=== PATIENT | male | born 1945 | race Caucasian/White ===

== ENCOUNTER → 2018-05-05 | Outpatient (CLI) | payer OTHER | LOC: BHFA 08:30 | PROVIDERS: ATTEND Internal Medicine Cardiovascular Disease | DX: I25.10 Atherosclerotic heart disease of native coronary artery without angina pectoris (principal) | CPT/HCPCS: 78452; 93017; A9500 ==

== ENCOUNTER 2018-05-19 06:18 | Day surgery (SDC) | payer OTHER ==
[2018-05-19] MEDS ORDERED: NS 1,000 ML IV ONE (06:21)
[2018-05-19] MEDS ORDERED: FAMOTIDINE 20 MG TAB PO ONE (06:21)
[2018-05-19] MEDS ORDERED: diphenhydrAMINE 25 MG CAP PO ONE ×2 (06:21→06:51)
[2018-05-19] MEDS ORDERED: ASPIRIN EC 325 MG TAB PO ONE ×2 (06:21→06:51)
[2018-05-19] MEDS ORDERED: DIAZEPAM 5 MG TAB PO ONE (06:21)
--- NOTE | 2018-05-19 06:45 | PDHPUP ---
History & Physical Update H&P update statement: This history and physical update is based on an assessment of the patient which was completed after admission or registration (within 24 hours), but prior to the surgery/procedure. H&P update: H&P reviewed & patient examined, no change in patient's condition since H&P completed
--- NOTE | 2018-05-19 06:45 | PDPROPOC ---
Sedation Plan of Care Sedation Plan of Care: mental status noted, patient educated of risks, benefits , alternatives, patient can tolerate sedation ASA Classification: ASA 2 Planned drugs: fentanyl, midazolam Mallampati Score: Class 2 Mallampati Reference Image: Patient passed 3-3-2 rule?: Yes
[2018-05-19] MEDS ORDERED: FAMOTIDINE 20 MG TAB ONE (06:51)
[2018-05-19] MEDS ORDERED: DIAZEPAM 5 MG TAB ONE (06:52)
[2018-05-19] MEDS ORDERED: MIDAZOLAM 2 MG/2 ML VIAL ONE ×2 (07:07→07:08)
[2018-05-19] MEDS ORDERED: LIDOCAINE 1% 300 MG/30 ML SDV ONE (07:07)
[2018-05-19] MEDS ORDERED: fentaNYL 100 MCG/2 ML INJ ONE (07:07)
[2018-05-19] MEDS ORDERED: IOPAMIDOL (ISOVUE-370) 150 ML BTL IV ONE (07:08)
[2018-05-19 07:11] LABS: PLATELET COUNT 210 10^3/uL (150-400)
[2018-05-19 07:19] LABS: INR 0.95 (0.83-1.16); PROTIME(PATIENT) 12.9 SEC (12.0-15.0)
[2018-05-19] MEDS ORDERED: ONDANSETRON 4 MG/2 ML VIAL IVP PRN (07:51)
[2018-05-19] MEDS ORDERED: ATROPINE SULFATE 1 MG/10 ML SYR IVP PRN (07:51)
[2018-05-19] MEDS ORDERED: HYDROCODONE/APAP 5/325 TAB PO PRN (07:51)
[2018-05-19] MEDS ORDERED: OXYCODONE/APAP 5/325 TAB PO PRN (07:51)
--- NOTE | 2018-05-19 08:34 | CPIP ---
DATE OF PROCEDURE: 05/19/2018 INDICATION FOR PROCEDURE: Positive stress test. PROCEDURE: 1. Nonselective right groin sheathogram. 2. Bilateral selective coronary angiography. 3. Left heart catheterization. 4. Left ventriculogram. HISTORY: Briefly, this is a 73-year-old male with history of elevated calcium score, family history of coronary disease, and positive stress test showing anterior ischemia who was consented for left he art catheterization. Of note, the patient has been asymptomatic and denies any chest pain or shortne ss of breath. 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 Using Lidocaine, a short 6-Turkmen sheath the right femoral artery, verified angiographically. Through 6-Turkmen sheath, a JR4 catheter was advanc ed to left coronary artery. Images of the left circumflex artery revealed normal left main. Left ci rcumflex artery gave off a medium-sized marginal artery proximally, which had focal tubular 80% to 90 % disease. Distally, the vessel appeared to be patent. The circumflex terminated to a marginal 2 an d 3 arteries which were tiny and free of disease. The LAD gave off a large diagonal proximally, whi ch had what appeared to be 50% disease in its proximal aspect. There was a 2nd diagonal artery comin g off just distal to this, which had subtotal occlusion of 90% disease. Distally, the vessel appeare d to be small. The LAD had tubular stenosis of at least 70% in its midportion. Distally, the vessel appeared to be widely patent. At this time, the JR4 catheter was removed. The JR4 catheter was advanced to the right coronary james ry. Images of the right coronary artery revealed normal ostial RCA, 30% disease in the proximal RCA. There appeared to be an early takeoff of the RPLS. The RPDA appeared to be healthy and free of dis ease; however, in the mid RPLS, he appeared to have a focal tubular stenosis of at least 70% distally . The vessel appeared to be widely patent. After these images were obtained, the JR4 catheter was removed. A pigtail catheter was advanced into the left ventricle. LVEDP is 15 mmHg. Left atrium in CHEEMA projection showed EF of 65% with no wall motion abnormalities. No pullback gradient between the LV and aorta. Pigtail catheter was removed o dave the 0.035 guidewire wire. Right groin was closed with a 6-Turkmen Angio-Seal. The patient of pro cedure well with no complications. IMPRESSION: 1. Multiple vessel coronary artery disease mainly in the form of mid left anterior descending, jose antonio nal 1 artery, diagonal 2 artery, and mid right posterolateralis sinister. 2. Normal ejection fraction. PLAN: The patient has multivessel coronary artery disease with amenable distal vessel to CABG. We w ill consult CT surgery. Further orders following clinical course. /[id number]/MODL
--- NOTE | 2018-05-20 22:26 | CPEKG ---
Test Reason : OPEN Blood Pressure : / mmHG Vent. Rate : 065 BPM Atrial Rate : 065 BPM P-R Int : 202 ms QRS Dur : 080 ms QT Int : 409 ms P-R-T Axes : 070 061 056 degrees QTc Int : 426 ms Sinus rhythm Early R/s transition in V3 Confirmed by Navi Graff ([id number]) on 05/20/2018 10:26:24 PM Referred By: Confirmed By:Navi Graff
== END 2018-05-19 12:16 | disposition home or self-care (01) ==
LOC: FCATH 06:18
PROVIDERS: ATTEND Internal Medicine Cardiovascular Disease
PROC: B2151ZZ Fluoroscopy of Left Heart using Low Osmolar Contrast (ICD-10-PCS; principal; 2018-05-19)
PROC: 4A023N7 Measurement of Cardiac Sampling and Pressure, Left Heart, Percutaneous Approach (ICD-10-PCS; principal; 2018-05-19)
PROC: B2111ZZ Fluoroscopy of Multiple Coronary Arteries using Low Osmolar Contrast (ICD-10-PCS; principal; 2018-05-19)
DX: R94.39 Abnormal result of other cardiovascular function study (principal); I25.10 Atherosclerotic heart disease of native coronary artery without angina pectoris; E78.5 Hyperlipidemia, unspecified; Z96.641 Presence of right artificial hip joint
CPT/HCPCS: C1760; J1644; J2250; J3010; Q9967

== ENCOUNTER 2018-06-08 06:55 | Inpatient (IN) | payer OTHER ==
[~2018-06-08 06:55] MED LIST: ADENOSINE 6 MG/2 ML VIAL ONE; ALBUMIN 5% 250 ML BOTTLE IV ONE; AMINOCAPROIC ACID 5 GM/20 ML VIAL IV ONE; AMIODARONE HCL 150 MG/3 ML VIAL ONE; CALCIUM CHLORIDE 1 GM/10 ML INJ ONE; CARDIOPLEGIC SOLUTION 1,052.8 ML PF ONE; CITRATE DEXTROSE SOLN 500 ML BAG MISC ONE; CITRATE DEXTROSE SOLN 500 ML BAG ONE; DOBUTamine/DEXTROSE 250 ML IV ONE; DOPamine/DEXTROSE 400 MG/250 ML BAG IV ONE; HEPARIN 10,000 UNIT/10 ML MDV (1,000 UNIT/ML) ONE; INSULIN REGULAR HUMAN 100 UNIT in NS 100 ML IV ONE; LIDOCAINE 2% 100 MG/5 ML SYR ONE; MAGNESIUM SULFATE 1 GM/2 ML VIAL ONE; MANNITOL 25% 12.5 GM/50 ML VIAL IVP ONE; MILRINONE/DEXTROSE/100 ML BAG IV ONE; NA BICARBONATE 50 MEQ/50 ML VIAL ONE; NITROGLYCERIN/D5W 50 MG/250 ML BOTTLE IV ONE; PAPAVERINE HCL 60 MG/2 ML SDV ONE; PHENYLEPHRINE HCL 50 MG in NS 250 ML IV ONE; PROTAMINE SULFATE 50 MG/5 ML VIAL IVP ONE; SODIUM BICARBONATE 50 MEQ/50 ML SYR ONE; VERAPAMIL 5 MG, NITROGLYCERIN 2.5 MG, HEPARIN 500 UNIT, SODIUM BICARBONATE 0.2 MEQ in L... MISC ONE; ceFAZolin 1 GM VIAL ONE; ceFAZolin 2 GM/DEXTROSE 100 ML IV ONE; methylPREDNISolone SOD SUCC 1 GM/8 ML VIAL ONE; niCARdipine/NACL 200 ML IV ONE; niCARdipine/NACL/200 ML BAG IV ONE
[2018-06-08] MEDS ORDERED: LIDOCAINE 1% 2 ML INJ ID PRN (07:05)
[2018-06-08] MEDS ORDERED: LR 1,000 ML IV ONE (07:10)
[2018-06-08] MEDS ORDERED: MIDAZOLAM 2 MG/2 ML VIAL IVP ONE (07:49)
--- NOTE | 2018-06-08 07:49 | PDANEPAE ---
ANE History of Present Illness here for CABG ANE Past Medical History - Cardiovascular History Hx Hypertension: No Hx Arrhythmias: No Hx Chest Pain: No Hx Coronary Artery / Peripheral Vascular Disease: Yes Hx CHF / Valvular Disease: No Hx Palpitations: No - Pulmonary History Hx COPD: No Hx Asthma/Reactive Airway Disease: No Hx Recent Upper Respiratory Infection: No Hx Oxygen in Use at Home: No Hx Sleep Apnea: No Sleep Apnea Screening Result - Last Documented: Negative - Neurologic History Hx Cerebrovascular Accident: No Hx Seizures: No Hx Dementia: No - Endocrine History Hx Diabetes: No - Renal History Hx Renal Disorders: No - Liver History Hx Hepatic Disorders: No - Neurological & Psychiatric Hx Hx Neurological and Psychiatric Disorders: No - Cancer History Hx Cancer: Yes Cancer History Comment: LUNG/AORTA CA. SKIN - Congenital Disorder History Hx Congenital Disorders: No - GI History Hx Gastrointestinal Disorders: No - Other Health History Other Health History: ED - Chronic Pain History Chronic Pain: No - Surgical History Prior Surgeries: CERVICAL FUSION 1960'S FX PLAYING FOOTBALL. RT TOTAL HIP. CARDINOID TUMOR LUNG/AORTA. LT SHLDR REMVL BONE CHIPS. LT KNEE SCOPE. TONSILLECTOMY ANE Review of Systems Review of systems is: negative Review of Systems: - Exercise capacity Exercise capacity: >=4 METS METS (RN): 6 METS ANE Patient History - Allergies Allergies/Adverse Reactions: oxycodone Allergy (Verified 05/29/18 10:25) Other-Enter Comments - Home Medications Home medications: home medication list seen and reviewed Home Medications: Aspirin [Aspirin 81mg (*)] 81 mg PO DAILY 05/15/18 [Last Taken 05/17/18 10:00] Atorvastatin Calcium [Lipitor 40 mg (*)] 40 mg PO HS 05/15/18 [Last Taken 10:00] Herbals/Supplements -Info Only 1 ea PO DAILY 05/15/18 [Last Taken 05/17/18 10:00 ] Ibuprofen [Motrin (*)] 200 mg PO DAILY PRN 05/15/18 [Last Taken 05/18/18 10:00] Sildenafil Citrate [Viagra] 100 mg PO AD 05/15/18 [Last Taken Unknown] amLODIPine BESYLATE [Norvasc 5 mg (*)] 5 mg PO DAILY 05/15/18 [Last Taken 10:00] Multivitamins [Multivitamin (*)] 1 each PO DAILY 05/29/18 [Last Taken Unknown] - NPO status NPO Status: no food or drink >8 hours - Smoking Hx Smoking Status: Never smoked - Family Anes Hx Family Hx Anesthesia Complications: NEG ANE Labs/Vital Signs - Vital Signs Vital Signs: reviewed preoperatively; see RN documention for details Height: 175.26 cm Weight: 76.204 kg ANE Physical Exam - Airway Neck exam: FROM, spinal fusion Mallampati Score: Class 1 Mouth exam: normal dental/mouth exam - Pulmonary Pulmonary: no respiratory distress - Cardiovascular Cardiovascular: regular rate and rhythym - ASA Status ASA Status: IV ANE Anesthesia Plan Anesthesia Plan: general endotracheal anesthesia Lines/Monitors: arterial line, central line
[2018-06-08] MEDS ORDERED: fentaNYL 250 MCG/5 ML INJ ONE (08:03)
[2018-06-08] MEDS ORDERED: PROPOFOL/EMULSION 500 MG/50 ML BOTTLE IV ONE (08:03)
[2018-06-08] MEDS ORDERED: ESMOLOL HCL 100 MG/10 ML VIAL IV ONE (08:04)
[2018-06-08] MEDS ORDERED: ROCURONIUM 100 MG/10 ML VIAL ONE (08:04)
[2018-06-08] MEDS ORDERED: PHENYLEPHRINE HCL 100 MCG/ML SYR ONE (08:04)
[2018-06-08] MEDS ORDERED: KETAMINE 200 MG/20 ML VIAL ONE (08:11)
[2018-06-08] MEDS ORDERED: DEXAMETHASONE 4 MG/ML VIAL ONE ×2 (08:12)
[2018-06-08] MEDS ORDERED: HYDROmorphONE/DILAUDID 2 MG/ML INJ ONE (10:29)
[2018-06-08] MEDS ORDERED: PROPOFOL 200 MG/20 ML VIAL ONE (11:21)
[2018-06-08] MEDS ORDERED: ALBUMIN 5% 250 ML BOTTLE IV ONE (12:35)
[2018-06-08] MEDS ORDERED: fentaNYL 100 MCG/2 ML INJ ONE (12:48)
--- NOTE | 2018-06-08 13:00 | POSTOPPROG ---
Post Op Note Date of Operation: 06/08/18 Surgeon: Kieran Tena Assistant: Leonardo Blount Anesthesia: GET(General Endotracheal) Pre-op Diagnosis: CAD, EF 65% Post-op Diagnosis: same Procedure: CABGx3 (MITCHELL-LAD, SVG-OM2, SVG-PDA); EVH right leg Findings: see OR report Inf/Abcess present in the surg proc area at time of surgery?: No EBL: 100-500 Complications: none Drains: Other (3 chest tubes - 1 right pleural, 1 left pleural, 1 mediastinal 2 V-Wires) Specimen(s): none
[2018-06-08] MEDS ORDERED: SODIUM CL NASAL 45 ML BTL EACHNARE PRN (13:12)
[2018-06-08] MEDS ORDERED: LACTULOSE 20 GM/30 ML UDCUP PO PRN (13:12)
[2018-06-08] MEDS ORDERED: CEPACOL LOZENGE PO PRN (13:12)
[2018-06-08] MEDS ORDERED: MEPERIDINE 25 MG/0.5 ML AMP IVP PRN (13:12)
[2018-06-08] MEDS ORDERED: METOCLOPRAMIDE 10 MG/2 ML VIAL IVP PRN (13:12)
[2018-06-08] MEDS ORDERED: MAGNESIUM HYDROXIDE 30 ML UDCUP PO PRN (13:12)
[2018-06-08] MEDS ORDERED: BISACODYL 10 MG SUPP PR PRN (13:12)
[2018-06-08] MEDS ORDERED: PANTOPRAZOLE SODIUM 40 MG VIAL IVP ONE (13:12)
[2018-06-08] MEDS ORDERED: fentaNYL 100 MCG/2 ML INJ IVP PRN (13:12)
[2018-06-08] MEDS ORDERED: ACETAMINOPHEN 650 MG SUPP PR PRN (13:12)
[2018-06-08] MEDS ORDERED: D50W 25 GM/50 ML SYR IVP PRN (13:12)
[2018-06-08] MEDS ORDERED: niCARdipine/NACL 200 ML IV PRN (13:12)
[2018-06-08] MEDS ORDERED: ONDANSETRON DISINTEGRATING 4 MG TAB PO PRN (13:12)
[2018-06-08] MEDS ORDERED: POLYETHYLENE GLYCOL 3350 17 GM PKT PO PRN (13:12)
[2018-06-08] MEDS ORDERED: ONDANSETRON 4 MG/2 ML VIAL IVP PRN (13:12)
[2018-06-08] MEDS ORDERED: NS 1,000 ML IV SCH (13:15)
[2018-06-08] MEDS ORDERED: INSULIN REGULAR HUMAN 100 UNIT in NS 100 ML IV SCH (13:30)
[2018-06-08] MEDS ORDERED: DEXMEDETOMIDINE HCL 400 MCG in NS 100 ML IV SCH (13:30)
[2018-06-08] MEDS: ALBUMIN 5% 250 ML IV PRN ×2 (13:40→19:52)
--- NOTE | 2018-06-08 13:48 | POSTANESTH ---
Post Anesthetic Evaluation Cardiovascular Status: Normal, Stable Respiratory Status: Requires Airway Assist Level of Consciousness/Mental Status: Can Participate in Eval Pain Control: Adequate, Prn Tx Ordered Nausea/Vomiting Control: Adequate, Prn Tx Ordered Complications Possibly Related to Anesthesia: None Noted
[2018-06-08 13:54] LABS: INR 1.39 (0.83-1.16); PROTIME(PATIENT) 17.2 SEC (12.0-15.0)
--- NOTE | 2018-06-08 14:00 | GCON ---
CHIEF CRNA CONSULTATION HISTORY OF PRESENT ILLNESS: Patient examined postoperatively after receiving a 3-vessel coronary art tip bypass graft. The patient is currently sedated and on mechanical ventilation. All history is gl eaned from the medical record. 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 He underwent a 3-vessel coronary bypass graft today. He is currently on mechanical ventilation. Blood pressure is somewhat lowish. REVIEW OF SYSTEMS: Ten-point review of systems is performed, negative except for as listed in the HP I. PAST MEDICAL HISTORY: Again significant for coronary artery disease, hyperlipidemia, degenerative dominique int disease, history of a lung carcinoid, status post lung resection. PAST SURGICAL HISTORY: Has had a hip replacement, carcinoid tumor removed. ALLERGIES: Oxycodone. FAMILY HISTORY: Significant for Alzheimer disease, cardiovascular disease, diabetes, hypertension. SOCIAL HISTORY: No history of tobacco use. Infrequent alcohol use. He is , has children. H as good family support. HOME MEDICATIONS: Include aspirin, atorvastatin, coenzyme Q, ibuprofen, and Viagra. PHYSICAL EXAM: VITAL SIGNS: Blood pressure is 82/69. Pulse is 56. Respirations are 16, temperature 36.7. Oxygen saturation is 100% on mechanical ventilation. GENERAL: He is a well-developed, well- nourished 73-year-old white male who is sedated and on mechanical ventilation. HEENT: Eyes are PERR LA, EOMI. Throat shows no erythema or tonsillar hypertrophy. NECK: Supple. There is no cervical a denopathy. HEART: Regular rate and rhythm, without murmurs, rubs, or gallops. LUNGS: Diminished b reath sounds, a few bibasilar crackles. ABDOMEN: Soft, nontender. Bowel sounds are present. EXTRE MITIES: No clubbing, cyanosis, or edema. LABORATORIES: Currently pending. Chest x-ray is currently pending. IMPRESSION: 1. Coronary artery disease. 2. Status post coronary artery bypass graft. 3. Acute respiratory failure, stable on mechanical ventilation. 4. Hypotension. 5. Degenerative joint disease. 6. Hyperlipidemia. 7. History of carcinoid tumor with lung resection. RECOMMENDATIONS: 1. Adequate pain control. 2. Agree with switching sedation to Precedex. 3. Wean from mechanical ventilation when tolerated. 4. DVT and PE prophylaxis, holding anticoagulation for now. 5. Stress ulcer prophylaxis. 6. Close cardiovascular monitoring. 7. Early ambulation. 8. PT and OT. /[id number]/MODL
--- NOTE | 2018-06-08 14:10 | PDMN ---
Medical Necessity Medical necessity: [facility] [place] S390 CAB yo s/p CABG, [facility] IP Only
--- NOTE | 2018-06-08 14:15 | GOP ---
DATE OF OPERATION: 06/08/2018 SURGEON: Kieran Tena MD LIME VAT TENDER: Leonardo Blount P.A.-c. PREOPERATIVE DIAGNOSIS: Coronary artery disease. POSTOPERATIVE DIAGNOSIS: Coronary artery disease. PROCEDURE PERFORMED: Triple-vessel coronary artery bypass grafting with left internal mammary artery to the left anterior descending, saphenous vein graft from aorta to M2, saphenous vein graft from ao rta to distal right coronary artery. Endoscopic vein harvest from the right leg. FINDINGS: The pericardial space was free. The aorta was soft. The vein was good quality 3-4 mm ves obdulio. The distal vessels were adequate for grafting with the exception of the 2nd diagonal, which was small, diffusely diseased, and deep in the epicardium. INDICATIONS: The patient is a 73-year-old gentleman with 3-vessel coronary artery disease including a high-grade lesion in his proximal LAD. He was recommended to undergo surgical revascularization. DESCRIPTION OF PROCEDURE: Patient was taken to the operating room and placed on the operating table in a supine position. After the induction of general anesthesia and single-lumen endotracheal tube i ntubation, the patient was prepped and draped sterilely. A standard median sternotomy was performed. The patient was fully heparinized. He was cannulated with a Sarnes 8.0 soft-flow aortic cannula as well as a dual-stage venous right atrial cannula. Cardiopulmonary bypass was instituted. The dista l vessels were marked for grafting. The distal right coronary artery, which was kind of a proximal t akeoff of the PDA, had a distal lesion in it. We opened this vessel. It was a 1.5 mm vessel and anas tomosed the vein graft end-to-side using running 7-0 Prolene. Next, a 2nd marginal was exposed, opened, probed, and then anastomosed end-to-side to a separate vein graft using running 7-0 Prolene. Lastly, the LAD was opened in its 3rd portion. It was anastomosed end-to-side to the left internal mammary artery using running 7-0 Prolene. This was then tacked to the epicardium and allowed to flow freely. The cross-clamp was then removed and a partial occlusion clamp was placed. The vein grafts were anastomosed end-to-side to the ascending aorta using running 6 -0 Prolene. Left, right, and mediastinal chest tubes were placed as well as 2 ventricular pacing wir es. The patient was from bypass without difficulty and the protamine was administered. On ce hemostasis had been achieved, the heart was covered with pericardium and fat, and the chest was cl osed with #6 stainless steel wires. Subcutaneous tissue and skin were closed with running Vicryl sut ure. The patient tolerated procedure the well. /[id number]/MODL
[2018-06-08] MEDS: MUPIROCIN 2% 22 GM OINT NS SCH ×3 (15:08→21:21)
[2018-06-08] MEDS: ceFAZolin 2 GM/DEXTROSE 100 ML IV SCH ×2 (15:09→21:21)
[2018-06-08] MEDS: POTASSIUM Cl (KCl) 50 ML IV PRN ×2 (17:21→20:16)
--- NOTE | 2018-06-08 17:58 | CPEKG ---
Test Reason : OPEN Blood Pressure : / mmHG Vent. Rate : 063 BPM Atrial Rate : 063 BPM P-R Int : 165 ms QRS Dur : 082 ms QT Int : 455 ms P-R-T Axes : 082 078 071 degrees QTc Int : 466 ms Sinus rhythm Borderline ST elevation, lateral leads-- Probably early repolarization. No significant change from No vember 2017 Confirmed by Leonardo Mccain ([id number]) on 06/08/2018 5:58:06 PM Referred By: Confirmed By:Leonardo Mccain
[2018-06-08] MEDS: HYDROCODONE/APAP 5/325 TAB PO PRN ×2 (19:21→21:56)
[2018-06-09] MEDS: HYDROCODONE/APAP 5/325 TAB PO PRN ×3 (01:32→17:31)
[2018-06-09] MEDS: ceFAZolin 2 GM/DEXTROSE 100 ML IV SCH ×3 (05:53→21:01)
[2018-06-09 06:15] LABS: PLATELET COUNT 163 10^3/uL (150-400)
--- NOTE | 2018-06-09 07:54 | SOAPPROG ---
SOAP Progress Note Assessment/Plan: POD # 1 CABGx3 1. CAD s/p CABGx3 -start aspirin today. Hold BB given patient's post-operative bradycardia. Possible restart 06/10. 2. Acute blood loss anemia - coagulopathic immediately post-op on arrival to ICU. 1 unit platelets with appropriate response. Output trended down and H/H stable. 3. Post-operative intermittent bradycardia with occasional PAC's - last episode at 2 AM, no drops in BP, appears to have inappropriate sensing. Wrap & cap. 4. Leukocytosis - WBC 10.13, afebrile, secondary to surgery 5. Hypertension - hold norvasc, BP stable but trending up, PRN hydralazine 6. Dyslipidemia - plan to restart home atorvastatin POD#3 Plan: TTF Chest tubes: yes, expect increase o/p with ambulation Wires: V-Wires, wrap & cap Arterial: Yes, discontinue today Urinary catheter: Yes, discontinue today CVC: yes, need for ongoing labs DVT ppx: ambulation, SCDs 06/09/18 09:08 Subjective: Doing well. Episodes of intermittent bradycardia overnight (last 2 AM). Hemodynamically stable. Objective: Vital Signs Temp Pulse Resp BP Pulse Ox 37.1 C 89 21 H 135/54 H 95 06/09/18 04:00 06/09/18 07:00 06/09/18 07:00 06/09/18 07:00 06/09/18 07:00 Laboratory Results 06/09/18 05:55 06/09/18 05:55 06/08/18 06/09/18 06/10/18 05:59 05:59 05:59 Intake Total 2803.8 Output Total 1875 95 Balance 928.8 -95 PT 17.2 SEC (12.0-15.0) H 06/08/18 13:25 INR 1.39 (0.83-1.16) H 06/08/18 13:25 General: NAD, sitting upright HEENT: CVL IJ, MMM Respiratory: RA 95%, no wheezes, crackles Cardiac: NSR, no m/r/g, no edema GI: soft, nt, nd : + morales Incisions: sternum/right thigh - CDI Chest tubes: 390/190/50 venous drainage, no airleak ICD10 Worksheet Patient Problems: Problems Problem Status Onset Acute blood loss anemia Acute S/P CABG x 3 Acute CAD, multiple vessel Chronic Dyslipidemia Chronic
--- NOTE | 2018-06-09 09:07 | PDINTPN ---
Flour Worker Progress Note Assessment/Plan: Assessment/plan: * Coronary disease * Status post coronary bypass graft * Respiratory-stable off mechanical ventilation -wean FiO2 as tolerated * Hypertension-controlled * History of lung carcinoma with resection * Pain-well controlled * PT/OT * Disposition-likely transfer to floor soon Overall improved Subjective: Sitting up in chair. Resting comfortably. Pain well tolerated. Using incentive spirometer appropriately. Objective: Vital Signs Temp Pulse Resp BP Pulse Ox 37.1 C 89 21 H 135/54 H 95 06/09/18 04:00 06/09/18 07:00 06/09/18 07:00 06/09/18 07:00 06/09/18 07:00 Laboratory Results 06/09/18 05:55 06/09/18 05:55 06/08/18 06/09/18 06/10/18 05:59 05:59 05:59 Intake Total 2803.8 Output Total 1875 95 Balance 928.8 -95 PT 17.2 SEC (12.0-15.0) H 06/08/18 13:25 INR 1.39 (0.83-1.16) H 06/08/18 13:25 Physical Exam - Physical Exam General Appearance: WD/WN, alert EENT: PERRL/EOMI, normal ENT inspection Neck: non-tender, full range of motion Respiratory: chest non-tender, lungs clear, normal breath sounds Cardiac/Chest: normal peripheral pulses, regular rate, rhythm, systolic murmur Peripheral Pulses: 2+: carotid (R), carotid (L), femoral (R), femoral (L), dorsalis-pedis (R), dorsalis-pedis (L) Abdomen: normal bowel sounds, non-tender, soft Male Genitalia: deferred Rectal: deferred Skin: normal color, warm/dry Extremities: normal range of motion, non-tender, normal inspection, normal capillary refill Neuro/Psych: alert, normal mood/affect, oriented x 3 ICD10 Worksheet Patient Problems: Problems Problem Status Onset Acute blood loss anemia Acute S/P CABG x 3 Acute CAD, multiple vessel Chronic Dyslipidemia Chronic
[2018-06-09] MEDS ORDERED: traMADol 50 MG TAB PO PRN (09:32)
--- NOTE | 2018-06-09 09:36 | ASMTCMCOM ---
CM Note CM Note Notes: 73yo male admitted for CAD, DLD, HLD- s/p CABG x 3. He has a Hx of DJD- R FAREED, Neck fusion, Lung tumor-removed. Patient lives with his who is his medical decision maker.Therapies to eval. May not have discharge needs. CM to follow. Date Signed: 06/09/2018 09:35 AM Electronically Signed By:Felicia Jones LCSW
[2018-06-09] MEDS ORDERED: hydrALAZINE 25 MG TAB PO PRN (09:42)
[2018-06-09] MEDS: ASPIRIN 81 MG CHEWABLE TAB PO SCH (09:50)
[2018-06-09] MEDS: PANTOPRAZOLE SODIUM 40 MG TAB PO SCH (09:51)
[2018-06-09] MEDS: MUPIROCIN 2% 22 GM OINT NS SCH ×2 (09:52→21:01)
[2018-06-09] MEDS: SENNOSIDES/DOCUSATE SODIUM TAB PO SCH (20:59)
[2018-06-10] MEDS: HYDROCODONE/APAP 5/325 TAB PO PRN ×2 (06:10→17:33)
[2018-06-10 06:34] LABS: PLATELET COUNT 150 10^3/uL (150-400)
--- NOTE | 2018-06-10 06:48 | SOAPPROG ---
SOAP Progress Note Assessment/Plan: POD #2: CABGx3 (MITCHELL-LAD, SVG-OM2, SVG-RCA), EVH right thigh CAD with preserved LV function s/p CABGx3 - CTs x3 out this morning - BB to start today, continue ASA/statin for secondary prevention - PT/OT Acute post-op blood loss anemia - H/H lower this AM without sxs of active bleeding - Monitor Post-op bradycardia - No bradycardia past 24 hours - Beta-nirav to start today - Keep V-wires DVT prophylaxis - SCDs only Disposition - Home Friday/Friday without services Subjective: Having a hard time taking deep breaths. Pain controlled. Objective: Vital Signs Temp Pulse Resp BP Pulse Ox 37.8 C 89 23 H 124/66 H 98 06/10/18 05:59 06/10/18 05:59 06/10/18 05:59 06/10/18 05:59 06/10/18 05:59 Laboratory Results 06/10/18 06:00 06/09/18 06/10/18 06/11/18 05:59 05:59 05:59 Intake Total 2803.8 1420 Output Total 1875 1375 Balance 928.8 45 PT 17.2 SEC (12.0-15.0) H 06/08/18 13:25 INR 1.39 (0.83-1.16) H 06/08/18 13:25 Physical Exam - Physical Exam General Appearance: WD/WN, alert, no apparent distress EENT: No scleral icterus (R), No scleral icterus (L) Neck: normal inspection Respiratory: No respiratory distress Cardiac/Chest: regular rate, rhythm Abdomen: non-tender, soft, No distended Skin: normal color, warm/dry Extremities: No pedal edema Neuro/Psych: no motor/sensory deficits, alert, normal mood/affect, oriented x 3 ICD10 Worksheet Patient Problems: Problems Problem Status Onset Acute blood loss anemia Acute S/P CABG x 3 Acute CAD, multiple vessel Chronic Dyslipidemia Chronic
[2018-06-10] MEDS: SENNOSIDES/DOCUSATE SODIUM TAB PO SCH ×2 (08:22→20:12)
[2018-06-10] MEDS: PANTOPRAZOLE SODIUM 40 MG TAB PO SCH (08:23)
[2018-06-10] MEDS: ASPIRIN 81 MG CHEWABLE TAB PO SCH (08:23)
[2018-06-10] MEDS: MUPIROCIN 2% 22 GM OINT NS SCH (08:24)
[2018-06-10] MEDS: METOPROLOL TARTRATE 25 MG TAB PO SCH ×2 (09:10→20:11)
--- NOTE | 2018-06-11 08:32 | SOAPPROG ---
SOAP Progress Note Assessment/Plan: POD #3: CABGx3 (MITCHELL-LAD, SVG-OM2, SVG-RCA), EVH right thigh CAD with preserved LV function s/p CABGx3 - HR 82-92 overnight, BB started yesterday - Continue ASA/statin for secondary prevention - PT/OT Acute post-op blood loss anemia - H/H lower this AM without sxs of active bleeding and asymptomatic (pre-op Hct 43 ->27->24->22) - Monitor, repeat H/H in morning. D/w patient possibility of needing a transfusion Post-op bradycardia, resolved - V-wires out today Mild Hyponatremia (133) - Renal function normal, expect to autoregulate DVT prophylaxis - SCDs only Disposition - Remove V-wires - Repeat H/H tomorrow - Home Friday/Friday without services Objective: Vital Signs Temp Pulse Resp BP Pulse Ox 37.4 C 84 18 118/57 L 92 06/11/18 07:42 06/11/18 07:42 06/11/18 07:42 06/11/18 07:42 06/11/18 07:42 Laboratory Results 06/11/18 05:55 06/10/18 06:00 06/10/18 06/11/18 06/12/18 05:59 05:59 05:59 Intake Total 1420 580 Output Total 1375 1050 Balance 45 -470 PT 17.2 SEC (12.0-15.0) H 06/08/18 13:25 INR 1.39 (0.83-1.16) H 06/08/18 13:25 General Appearance: WD/WN, alert, no apparent distress EENT: No scleral icterus (R), No scleral icterus (L) Neck: normal inspection, R CVL Respiratory: No respiratory distress Cardiac/Chest: regular rate, rhythm, v-wires capped Abdomen: non-tender, soft, No distended Skin: normal color, warm/dry; sternum C/D/I; EVH site C/D/I Extremities: No pedal edema Neuro/Psych: no motor/sensory deficits, alert, normal mood/affect, oriented x 3 CXR reviewed - mild interstitial edema ICD10 Worksheet Patient Problems: Problems Problem Status Onset Acute blood loss anemia Acute S/P CABG x 3 Acute chronic disease mgmt/transitional care Acute CAD, multiple vessel Chronic Dyslipidemia Chronic
[2018-06-11] MEDS: SENNOSIDES/DOCUSATE SODIUM TAB PO SCH ×2 (09:42→20:24)
[2018-06-11] MEDS: ASPIRIN 81 MG CHEWABLE TAB PO SCH (09:42)
[2018-06-11] MEDS: PANTOPRAZOLE SODIUM 40 MG TAB PO SCH (09:43)
[2018-06-11] MEDS: METOPROLOL TARTRATE 25 MG TAB PO SCH ×2 (09:44→20:24)
[2018-06-11] MEDS: ACETAMINOPHEN 325 MG TAB PO PRN ×2 (09:46→20:23)
[2018-06-11] MEDS ORDERED: ATORVASTATIN CALCIUM 40 MG TAB PO SCH (21:00)
--- NOTE | 2018-06-12 07:53 | SOAPPROG ---
SOAP Progress Note Assessment/Plan: POD #4: CABGx3 (MITCHELL-LAD, SVG-OM2, SVG-RCA), EVH right thigh CAD with preserved LV function s/p CABGx3 - Continue BB/ASA/statin for secondary prevention - PT/OT Acute post-op blood loss anemia - H/H drifting lower without sxs of active bleeding - Will transfuse 2U PRBCs Post-op bradycardia - Resolved, continue BB DVT prophylaxis - SCDs only Disposition - Home Friday without services Subjective: Pt reports feeling weak. Denies SOB. Disappointed his blood level is dropping and that he needs a blood transfusion. Objective: Vital Signs Temp Pulse Resp BP Pulse Ox 37.4 C 83 18 109/58 L 91 L 06/12/18 04:00 06/12/18 04:00 06/12/18 04:00 06/12/18 04:00 06/12/18 04:00 Laboratory Results 06/12/18 06:25 06/10/18 06:00 06/11/18 06/12/18 06/13/18 05:59 05:59 05:59 Intake Total 580 620 Output Total 1050 750 Balance -470 -130 PT 17.2 SEC (12.0-15.0) H 06/08/18 13:25 INR 1.39 (0.83-1.16) H 06/08/18 13:25 Physical Exam - Physical Exam General Appearance: WD/WN, alert, no apparent distress EENT: No scleral icterus (R), No scleral icterus (L) Neck: normal inspection Respiratory: No respiratory distress Cardiac/Chest: regular rate, rhythm Abdomen: non-tender, soft, No distended Extremities: other (R thigh harvest area soft, no fluid appreciated ), No pedal edema Neuro/Psych: no motor/sensory deficits, alert, normal mood/affect, oriented x 3 ICD10 Worksheet Patient Problems: Problems Problem Status Onset Acute blood loss anemia Acute S/P CABG x 3 Acute chronic disease mgmt/transitional care Acute CAD, multiple vessel Chronic Dyslipidemia Chronic
[2018-06-12] MEDS: PANTOPRAZOLE SODIUM 40 MG TAB PO SCH (08:36)
[2018-06-12] MEDS: METOPROLOL TARTRATE 25 MG TAB PO SCH (08:36)
[2018-06-12] MEDS: ACETAMINOPHEN 325 MG TAB PO PRN ×2 (08:37→17:18)
[2018-06-12] MEDS: SENNOSIDES/DOCUSATE SODIUM TAB PO SCH (08:37)
[2018-06-12] MEDS: ASPIRIN 81 MG CHEWABLE TAB PO SCH (08:37)
--- NOTE | 2018-06-12 09:36 | PDDCSUM ---
Discharge Summary Discharge Summary: DATE OF ADMISSION: 06/08/18 DATE OF DISCHARGE: 06/12/18 DISPOSITION: Home, self care with home oxygen ACTIVITY: Instructed on sternal precautions, activity restrictions, and problems to call [email or web address]. ADMISSION DIAGNOSES: Coronary artery disease with preserved LV function Hyperlipidemia Personal history of lung carcinoid s/p resection DISCHARGE DIAGNOSES: As above plus, Acute post-op blood loss anemia History of blood transfusion (platelets, pRBCs) PROCEDURE PERFORMED: 06/08/18, Dr. Roldan Triple-vessel coronary artery bypass grafting with left internal mammary artery to the left anterior descending, saphenous vein graft from aorta to M2, saphenous vein graft from aorta to distal right coronary artery. Endoscopic vein harvest from the right leg. HISTORY OF PRESENT ILLNESS: This is a 73 year-old physically active male with multiple cardiac risk factors , a high coronary calcium score, and an abnormal nuclear stress test demonstrating a moderate mid-anterior defect. On C, he was found to have severe multivessel CAD with a 70% mid-LAD stenosis. He is completely asymptomatic, playing handball and hiking 3x weekly without chest pain, dyspnea , palpitations, or perceivable decline in stamina. Weight has been stable, no edema. HOSPITAL COURSE BY PROBLEM LIST: CAD with preserved LV function s/p CABGx3 - He was admitted to the ICU and transferred to the floor on POD#1. Hemodynamically stable throughout hospital stay except for transient bradycardia after surgery. Aspirin and statin were started. Patient was discharged on POD#4. Acute post-op blood loss anemia - Coagulopathic immediately post-op on arrival to ICU and 1 unit of platelets transfused with appropriate response. H/H trended downward as low as (6.9/20.2) without active bleeding and was asymptomatic. He was transfused 2 units pRBCs the day of discharge. Postoperative intermittent bradycardia with occasional PAC's - Resolved in 24 hours after surgery. Low-dose beta nirav was started and tolerated. His Norvasc was stopped Dyslipidemia - Home statin was restarted. PERTINENT DISCHARGE CLINICAL INFORMATION: Sternotomy stable, CDI EVH right leg, CDI HR 82 BP 106/52 SpO2 92% 1 L +2.5 kg (pre-op 76 kg/@ dc 78.5 kg) WBC 10.12 Hgb 6.9 HCT 20.2 Plt 150 Na 133 K 4.3 Cr 0.9 CXR 11/30: small bilateral effusions, stable CONSULTANTS: Dr. Shade Huynh, [facility] MEDICATIONS ON ADMISSION: Norvasc 5 mg PO daily Aspirin 81 mg PO daily Atorvastatin 40 mg PO daily Co-Q 100 mg PO daily Ibuprofen PRN Viagra PRN ALLERGIES/SENSITIVITIES: oxycodone (nightmares) DISCHARGE MEDICATIONS: STOP these medications: Norvasc 5 mg PO daily Ibuprofen PRN Viagra PRN (until after clinic visit) CONTINUE these medications: Aspirin 81 mg PO daily Atorvastatin 40 mg PO daily Co-Q 100 mg PO daily NEW medications: Lopressor 12.5 mg PO BID daily Tramadol 50-100 mg PO q6 PRN moderate-severe pain #30 Tylenol OTC PRN mild pain FOLLOW UP APPOINTMENTS: 1. CV surgery: with Dr. Roldan at [facility] on Jun 23 @ 10:30am. 2. Cardiology: with Dr. Carrillo at [facility] within 4-6 weeks. Appointment to be established during surgical visit. FOLLOW UP TESTING: CXR & H/H prior to surgical appointment.
[2018-06-12] MEDS ORDERED: FUROSEMIDE 20 MG/2 ML VIAL IVP ONE (10:05)
--- NOTE | 2018-06-12 10:57 | ASMTCMCOM ---
CM Note CM Note Notes: Pts case discussed w/ THAI Ventura. Pt will d/c without any needs on Friday per RANDA Parmar. CM available for changes. Plan: Independent Date Signed: 06/12/2018 10:56 AM Electronically Signed By:LUCA Dutton
--- NOTE | 2018-06-12 11:35 | PDHOMEO2F ---
Home Oxygen Face to Face Home Orders: I certify that a physician or a nurse practitioner or physician's high school assistant football coach has had a [id number] encounter with this patient on the date of this order due to the diagnosis listed, which relates to the primary reason the patient requires home oxygen. Alternative treatments have been tried, or considered, and deemed ineffective. It is anticipated that supplemental oxygen will result in improvement with treatment. Home oxygen qualifying diagnosis: coronary artery disease s/p CABG, anemia SpO2 on room air (%): 86 Frequency of home oxygen needed: continuous Home oxygen liters per minute: 1 Home oxygen delivery device: nasal cannula Concentrator: Yes E-tanks for mobility and back up: Yes If ordering portable O2, is the patient mobile in the home?: Yes I certify that, based on these findings, the home oxygen is medically necessary for this patient for the following length of time. Length of time home oxygen needed: 1 month
[2018-06-12 15:58] VITALS: BP 108/58
== END 2018-06-12 17:55 | disposition home or self-care (01) | DRG 236 ==
LOC: F2W 06:55 → F2N 07:41 → F2W 06-10 11:10
PROVIDERS: ADMIT Thoracic Surgery (Cardiothoracic Vascular Surgery); ATTEND Thoracic Surgery (Cardiothoracic Vascular Surgery)
DX: I25.10 Atherosclerotic heart disease of native coronary artery without angina pectoris (principal); E78.5 Hyperlipidemia, unspecified; D62 Acute posthemorrhagic anemia; R00.1 Bradycardia, unspecified; Z85.820 Personal history of malignant melanoma of skin; Z85.118 Personal history of other malignant neoplasm of bronchus and lung
CPT/HCPCS: 82435-PO; 82565-PO; 82947-PO; 83605-PO; 84132-PO; 84295-PO; 84520-PO; 85014-PO; 97116-GP; 97161-GP; 97166-GO; 97530-GP; 97535-GO; C1768; G8978-GP-CI; G8978-GP-CJ; G8979-GP-CI; G8980-GP-CI; G8987-GO-CJ; G8988-GO-CI; G8989-GO-CI; J0153; J0282; J0690; J1100; J1170; J1265; J1644; J1815; J1940; J2001; J2150; J2250; J2260; J2370; J2440; J2704; J2720; J2930; J3010; J3475; J3480; P9016; P9035; P9041; P9100

== ENCOUNTER → 2018-06-16 | Outpatient (CLI) | payer OTHER | LOC: FIMAGING 09:58 | PROVIDERS: ATTEND Thoracic Surgery (Cardiothoracic Vascular Surgery) | DX: R06.00 Dyspnea, unspecified (principal); Z95.1 Presence of aortocoronary bypass graft ==

== ENCOUNTER → 2018-06-23 | Outpatient (CLI) | payer OTHER | LOC: FIMAGING 09:40 | DX: Z98.890 Other specified postprocedural states (principal); Z95.1 Presence of aortocoronary bypass graft ==

== ENCOUNTER → 2018-07-08 | Outpatient (CLI) | payer OTHER | END | disposition home or self-care (01) | LOC: FIMAGING 10:01 | PROVIDERS: ATTEND Thoracic Surgery (Cardiothoracic Vascular Surgery) | DX: R91.8 Other nonspecific abnormal finding of lung field (principal); J98.11 Atelectasis; Z95.1 Presence of aortocoronary bypass graft ==